=== PATIENT | male | born 1955 | race Caucasian/White ===

== ENCOUNTER 2017-04-25 09:10 | Emergency (ER) | payer OTHER ==
[~2017-04-25 09:10] MED LIST: C5 PO; FISH-EPA1000 MG PO; MOBIC15 MG PO; NORCO1 TA1 PO; PERCOCET1 TA4 PO; PRIN10 PO; TRIGLYCERIDE MED; VITAMIN D1000 UNI1 PO; Z100 PO; Z300 PO; ZOCOR10 PO
== END 2017-04-25 10:46 | disposition home or self-care (01) ==
LOC: ER 09:10
DX: M25.512 Pain in left shoulder (principal); M25.552 Pain in left hip; M54.5 Low back pain; Z79.899 Other long term (current) drug therapy; W10.9XXA Fall (on) (from) unspecified stairs and steps, initial encounter
CPT/HCPCS: 72100; 72192; 73030-LT; 73552-LT; 99284; A9270-GY